=== PATIENT | female | born 2000 | race Caucasian/White ===

== ENCOUNTER 2024-11-29 21:55 | Emergency (ER) | payer OTHER, SELFPAY ==
[2024-11-29 22:02] VITALS: BP 126/85; PULSE 107; RESP 20; TEMP 36.7; O2SAT 100; BMI 22.1
--- NOTE | 2024-11-29 22:50 | CRLHL7_ITS ---
For Patients: As a result of the Century Cures Act, medical imaging exams and procedure reports are released immediately into your electronic medical record. You may view this report before your referring provider. If you have questions, please contact your health care provider. INDICATION: Blow to head, injury-TODAY TECHNIQUE: CT Head without i.v. contrast. Coronal and sagittal reformats were obtained. COMPARISON: None FINDINGS: CSF space: The ventricles are normal for age. Brain: No evidence of mass, acute infarction or hemorrhage is seen. No mass-effect or midline shift is seen. The brain parenchyma is otherwise normal in appearance with preservation of the ball-white matter junction. Calvarium: The visualized paranasal sinuses are well aerated. The mastoid air cells are clear. The visualized orbits are grossly unremarkable. The calvarium is unremarkable in appearance with no fractures identified. IMPRESSION: 1. No evidence of acute infarction, intracranial hemorrhage, or mass-effect seen. Please note that all CT scans at this facility use dose modulation, iterative reconstruction, and/or weight-based dosing when appropriate to reduce radiation dose to as low as reasonably achievable. Dictated by: Rj Sosa MD @ 11/29/2024 23:37:49 (Electronically Signed)
--- NOTE | 2024-11-29 22:50 | ED_ITS ---
HPI - General Adult General Chief complaint: Head Injury/Pain Stated complaint: Hit head on metal beam, [employer] Time Seen by Provider: 11/29/24 22:29 History of Present Illness HPI narrative: Patient is a 24-year-old woman who was at work at [employer] when 6 heavy doors fell on her. The door struck her on the right adventism knocked to the ground. She has a abrasion on the right lateral eyelid. She does not appear to have lost consciousness. Her GCS is 15. She was little confused initially but her sensorium has returned to normal. She does have a headache pain in the right side of her jaw. She can open and close her jaw without any difficulty. The injury occurred approximately 45 minutes ago and she was brought in by her mom. Patient's tetanus shot is up-to-date. She has no other symptoms such as neck pain. Related Data Allergies Allergy/AdvReac Type Severity Reaction Status Date / Time No Known Allergies Allergy Unknown Verified 11/29/24 22:10 Review of Systems Status of ROS: Reports: 10 or more systems reviewed and unremarkable except as noted in History and below Exam Narrative: Exam Narrative: EXAM GENERAL: Patient appears comfortable and well. EYES: No scleral icterus. Minor abrasion lateral upper eyelid linear non full- thickness. ENT: Tympanic membranes and oropharynx normal. THYROID: no thyroid nodules or thyromegaly. LYMPH: No supraclavicular or cervical lymphadenopathy. SKIN: Visible skin seen during exam normal or with benign process only. EXT: No dependent lower extremity pedal edema. HEART: Regular rate and rhythm with no murmurs, rubs, or gallops. LUNGS: Clear to auscultation bilaterally with no crackles or wheezes. ABD: Soft, non tender, non distended. PSYCH: Good eye contact, speech is not pressured. Neurologic cranial nerves 2-12 grossly intact no focal defects. Const: Vital Signs, click to edit/add: Vital Signs - 24 hr 11/29/24 22:02 Temperature 98.1 F Pulse Rate [Left P ulse Oximeter] 107 H Respiratory Rate 20 Blood Pressure [Le ft Upper Arm] 126/85 Pulse Oximetry 100 Oxygen Delivery Me thod Room Air Course Course ED Course: Patient seen and examined. Not believe the skin findings needle laceration repair and we did clean the wound. CT of the head pending. Vital Signs Vital signs: Initial Vital Signs Temperature 98.1 F 11/29/24 22:02 Temperature Source Temporal Artery Scan 11/29/24 22:02 Pulse Rate 107 H 11/29/24 22:02 Pulse Rhythm Regular 11/29/24 22:02 Respiratory Rate 20 11/29/24 22:02 Blood Pressure 126/85 11/29/24 22:02 Blood Pressure Mean 98 11/29/24 22:02 Blood Pressure Position Sitting 11/29/24 22:02 Pulse Oximetry 100 11/29/24 22:02 Oxygen Delivery Method Room Air 11/29/24 22:02 Vital Signs Temperature 98.1 F 11/29/24 22:02 Pulse Rate 107 H 11/29/24 22:02 Respiratory Rate 20 11/29/24 22:02 Blood Pressure 126/85 11/29/24 22:02 Pulse Oximetry 100 11/29/24 22:02 Oxygen Delivery Method Room Air 11/29/24 22:02 Temperature 98.1 F 11/29/24 22:02 Pulse Rate 107 H 11/29/24 22:02 Respiratory Rate 20 11/29/24 22:02 Blood Pressure 126/85 11/29/24 22:02 Pulse Oximetry 100 11/29/24 22:02 Oxygen Delivery Method Room Air 11/29/24 22:02 Medical Decision Making MDM Narrative Medical decision making narrative: Patient presents after receiving a blow to the head. Abrasion/ laceration was cleaned and dressed. No further intervention needed. CT of the head without contrast showed no evidence of id intracranial abnormalities. Patient's GCS is 15 and she is otherwise uninjured. Would recommend continued wound care Tylenol Motrin ice follow-up as needed. Discharge Plan Discharge Clinical Impression: Laceration Patient Disposition: Home, Self-Care Condition: Stable Instructions: Laceration (ED) Additional Instructions: bacitracin bandage as directed Tylenol Motrin ice follow-up as needed Activity Level: No Restrictions Discharge Diet: Regular Follow Up/Referrals: Provider,Not a Local [Primary Care Provider, Family Practice] Stand Alone Forms: [facility] Info Instructions
--- OUTSIDE RECORDS SUMMARY | 2024-11-29 23:10 | XMS_ITS | Encounter Summary ---
Author Organization [facility] Address [address] [place] [address]. [place] [address] Care Team Providers Care Universal Grinder Set Up Operator Name Role Phone Linda Jacques PA-C Primary Care Provider + [phone] Linda Jacques PA-C Unavailable [phone] [facility] Primary Care Provider Encounter Details Date Type Department Care Team (Late st Contact Info) Description 02/09/2021 MyC Medical Advice [facility] [address] [place] [address] Linda Jacques PA-C [address] [facility] [place], [place] [address] Social History Tobacco Use Types Packs/Day Years Used Date Smoking Tobacco: Never Smokeless Tobacco: Never Alcohol Use Standard Drinks/Week Comments Never 0 (1 standard drink = 0.6 oz pur e alcohol) AUDIT-C Answer Date Recorded Q1: How often do you have a drink containing alc ohol? 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
--- OUTSIDE RECORDS SUMMARY | 2024-11-29 23:10 | XMS_ITS | Clinical Summary ---
Author Organization [facility] Address [address] [place] [address] Care Team Providers Care Air Liaison And Special Staff Name Role Phone Armida Chan MD Primary Care Provider + [phone] Source Comments You are receiving this document as you are listed as the primary care provider,follow-up provider, or the patient has been referred to you for consultation.This is in compliance with the Medicare andThe [facility] EHR Incentive Program,which states Providers who transition their patient to another setting of careor provider of care or refers their patient to another provider of care shouldprovide summary care record for each transition of care or referral. [facility] Allergies No known active allergies Medications cetirizine (ZYRTEC) 10 MG tabletIndications: Perennial Allergic Rhinitis Take 1 Tablet (10 mg) by mouth daily. Indications: Perennial Allergic Rhinitis Active chlorhexidine gluconate (PERIDEX) 0.12 % solution Swish and spit 15 mL in mouth two times a day. 473 mL 4 Active valACYclovir (VALTREX) 1 g tabletIndications: Recurrent cold sores Take 2 Tablets (2,000 mg) by mouth two times a day. For 1 day at first sign of cold sore 12 Tablet 4 Active Norethin Sg-Eth Estrad-FE (BLISOVI FE 07/16) 1-20 MG-MCG tabletIndications: Encounter for contraceptive management, unspecified type Take 1 Tablet by mouth daily. 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 Chronic migraine without aur a without status migrainosus, not intractable 01/13/2014 Chronic rhinitis 09/21/2012 Encounters Date Type Department Care Team Description 10/19/2024 Notes/Orders [facility] [place] [address] [place] [address] Kaylah Roland, PT from Last 3 Months Immunizations Immunization Administration Dates Next Due 4vHPV (Gardasil) 11/22/2014 9vHPV (Gardasil 9) 07/18/2015,01/10/2015 Bexsero (Meningococcal Group B Vaccine) 05/01/2020 DTP 2002,2002 DTaP 08/15/2007, 4,2002,2002,2002 Flu Vac (3+ yrs) 04/06/2013, 1,05/29/2010,2008 HPV, Unspecified Formulation 11/22/2014 HepA Ped/Adol (1-18 yrs) 03/03/2012,01/01/2011 Hib/HBV 06/14/2003,2002,2002 IPV (Polio) 08/15/2007, 3,2002,2002 Influenza ([place] Only) (Flul aval Quad 0.5, 3+ yrs) 04/06/2013,07/03/2010,05/29/2010,2008 MCV4 (Menactra) 07/19/2019 MCV4 Menveo 2m.+ (two vial) 11/22/2014 MMR 06/14/2003 MMRV (ProQuad) 06/28/2006 Pneumococcal 7, PED 06/14/2003, 3,2002,2002 Td (7+ yrs) 11/22/2014 Tdap 11/22/2014 Varicella 06/14/2003 Family History Medical History Relation Name Comments Alcohol Abuse Father Miscarriages / Stillbirths Mother Arthritis Maternal Grandfather Diabetes Maternal Grandfather Heart Disease Maternal Grandfather Hypertension Maternal Grandfather Vision Loss Maternal Grandfather Amblyopia/Strabismus Maternal Grandmother Asthma Maternal Grandmother Crohn's Disease Maternal Grandmother Stroke Other MGGM Cancer Paternal Grandmother ovarian Glaucoma Negative Family History Macular Degeneration Negative Family History Retinal Detachment Negative Family History Relation Name Status Comments Father Alive Mother Alive Maternal Grandfather Maternal Grandmother Other MGGM Paternal Grandmother Social History Tobacco Use Types Packs/Day Years Used Date Smoking Tobacco: Never Smokeless Tobacco: Never Tobacco Cessation:Counseling Given: Not Answered Alcohol Use Standard Drinks/Week Comments Never 0 (1 standard drink = 0.6 oz pur e alcohol) PHQ-2 Answer Date Recorded PHQ-2 Score 4 07/20/2023 Financial Resource Strain Answer Date R ecorded Is it hard for you to pay fo r the very basics like food, housing, medical care or heating? No 01/18/2024 Food Insecurity Answer Date Recorded Does your food run out before you have the money to buy more? No 01/18/2024 Transportation Needs Answer Date Record ed Does a lack of transportatio n keep you from your medical appointments or from getting your medications? No 024 Comments No Sex and Gender Information Value Date Recorded Sex Assigned at Not on file Legal Sex Female 5:24 AM CDT Gender Identity Not on file Sexual Orientation Not on file Occupation Industry Job Start Date Job End Date student Not on file Not on file Not on file Last Filed Vital Signs Vital Sign Reading Time Taken Comments Blood Pressure 125/81 07/23/2024 7:43 AM SKILLED TRADES TEACHER Pulse 69 07/23/2024 7:43 AM SKILLED TRADES TEACHER Temperature 36.7 C (98.1 F) 09/24/2023 11:53 AM CDT Respiratory Rate 14 09/24/2023 11:53 AM CDT Oxygen Saturation 100% 09/24/2023 11:53 AM CDT Inhaled Oxygen Concentration - - Weight 59 kg (130 lb) 07/23/2024 7:43 AM SKILLED TRADES TEACHER Height 161.3 cm (5' 3.5) 01/18/2024 2:14 PM CDT Body Mass Index 22.66 01/18/2024 2:14 PM CDT Plan of Treatment Health Maintenance Due Date Last Done Comments Meningococcal B Vaccine (2 o f 2 - Bexsero SCDM 2-dose series) 10/29/2020 05/01/2020 Pneumococcal Vaccine (1 of 2 - PCV) 2021 06/14/2003, 2002, 2002, Additional history exists COVID-19 Vaccine (1 - 2023-2 5 season) 2024 DTaP/Tdap/Td Vaccine (8 - Tdap) 11/22/2024 11/22/2014, 11/22/2014, 08/15/2007, Additional history exists Adult Preventive Visit 01/17/2025 01/18/2024, 2020 Chlamydia 01/17/2025 01/18/2024, 07/28, 04/24/2021 Influenza Vaccine (Season Ended) 2025 04/06/2013, 04/06/2013, 07/03/2010, Additional history exists Cervical Cancer Screening 01/17/2027 01/18/2024 Zoster/Shingles Vaccine (1 of 2) 2052 HepB Vaccine Completed 06/14/2003, 09/26, 2002 Hib Vaccine Completed 06/14/2003, 09/26, 2002 Varicella Vaccine Completed 06/28/2006, 06/14/2003 IPV (Polio) Vaccine Completed 08/15/2007, 2002, 2002, Additional history exists HepA Vaccine Completed 03/03/2012, 01/01/2011 HPV Vaccine Completed 07/18/2015, 12/25, 11/22/2014, Additional history exists MCV4 Vaccine Completed 07/19/2019, 11/22/2014 HIV Screening (Preventive Services) Completed 01/18/2024 Hep C Screening (Preventive Services) Completed 01/18/2024 Procedures Procedure Name Priority Date/Time Associated Diagnosis Comments HIV 1/2 AG/AB 4TH GEN Routine 01/18/2024 3:39 PM CDT Screening for HIV (human immunodeficiency virus) HEPATITIS C ANTIBODY, WITH REFLEX (ANTI-HCV) Routine 01/18/2024 3:39 PM CDT Need for hepatitis C screening test CHLAMYDIA & GC (14 YEARS & OLDER) Routine 01/18/2024 3:09 PM CDT Routine screening for STI (sexually transmitted infection) CYTOLOGY (PAP) Routine 01/18/2024 3:09 PM CDT Screening for malignant neoplasm of cervix from Last 3 Months or Most Recently Relevant to Health Maintenance Results * HIV 1/2 Ag/Ab 4th Generation (01/18/2024 3:39 PM CDT) Pathologist [facility] HIV 1/2 Antigen/Antib julian (4th generation) Negative (Non Reactive) Negative (Non Reactive) 01/18/2024 8:53 PM CDT [facility] Comment:HIV-1 p24 Antigen an d HIV-1/HIV-2 Antibody not detected Blood Venipuncture / Unknown 01/18/2024 3:39 PM CDT 01/18/2024 3:39 PM CDT Armida Chan MD LAB_1 Final Result Performing Organization Address [facility] Phone Number [facility] [address] [place] [address] * Hepatitis C Antibody, with Reflex (01/18/2024 3:39 PM CDT) Pathologist [facility] Hepatitis C Antibody Negative (Non Reactive) Negative (Non Reactive) 01/18/2024 8:53 PM CDT [facility] Comment:Antibodies to HCV no t detected. Does not exclude the possiblity of exposure to HCV. Blood Venipuncture / Unknown 01/18/2024 3:39 PM CDT 01/18/2024 3:39 PM CDT Armida Chan MD LAB_1 Final Result Performing Organization Address [facility] de Phone Number [facility] [address] [place] [address] * PAP Test (01/18/2024 3:09 PM CDT) Pathologist [facility] Case Report Pap Case: [id number] Authorizing Provider: Armida Chan MD Collected: 01/18/2024 1509 Ordering Location: [facility] Received: 01/18/2024 1856 First Screen: Monica Tabares Specimen: Pap Test, Routine, Cervix/Endocervix 02/28/2024 2:04 PM CDT [facility] Pap Specimen Adequacy Satisfactory for evaluation, endocervical/mccollum sformation zone component absent. 02/28/2024 2:04 PM CDT [facility] Pap Interpretation (NILM) Negative for intraepithelial lesion or malignancy. 02/28/2024 2:04 PM CDT [facility] at 1404 CDT Pap Disclaimer The Pap test is a screening test to aid in the detection of cervical and vaginal cancers and their precursor lesions. It is not a diagnostic procedure and should not be used as the sole means of detecting malignancy. Both false-positive and false-negative results may occur. 02/28/2024 2:04 PM CDT [facility] Gross Description The specimen is received in SurePath fixative and properly labeled. 1 Pap-stained SurePath slide is prepared. 02/28/2024 2:04 PM CDT [facility] Embedded Images 2:04 PM CDT [facility] Other Specimen Type ENTIRE ENDOCERVIX / Unknown 01/18/2024 3:09 PM CDT 01/18/2024 6:56 PM CDT Comment:LMP: No LMP recorded . us Armida Chan MD LAB PATHOLOGY Final Result Performing Organization Address City/State/[facility] Co de Phone Number [facility] [address] * Chlamydia & GC (14 Years and Older): Vagina (01/18/2024 3:09 PM CDT) Chlamydia Trachomatis STD Not Detected Not Detected 01/19/2024 12:58 PM CDT [facility] N. gonorrhoeae STD Not Detected Not Detected 01/19/2024 12:58 PM CDT [facility] Swab STD SPECIMEN FROM VAGINA / Unknown Non-blood Collection / Unknown 01/18/2024 3:09 PM CDT 01/18/2024 6:55 PM CDT Narrative [facility] - 01/19/2024 12:58 PM CDT Test performed by Movie Shot Camera Operator Mediated Amplification (TMA). us Armida Chan MD LAB_1 Final Result [facility] [address] [place] [address], [facility] from Last 3 Months or Most Recently Relevant to Health Maintenance Insurance S[employer] S[employer]ED [employer]N CHARLES Care Teams Air Liaison And Special Staff Relationship Specialty [place] [address] [place] [address] Thras[address] [id number] PCP - General Family Practice 08/11/21
--- OUTSIDE RECORDS SUMMARY | 2024-11-29 23:10 | XMS_ITS | Clinical Summary ---
Author Organization [facility] Address [address] [place] [id number] Care Team Providers Care Equipment Scheduler Name Role Phone Clinic - [facility] Primary Care Provider Allergies No known active allergies Medications triamcinolone (KENALOG) 0.1 % external ointmentIndicati ons:Eczema, unspecified type Apply topically 2 times daily as needed for irritation 30 g 1 0 Active norethindrone-et hinyl estradiol (07/16) 1-20 MG-MCG tabletIndication s:Dysmenorrhea,A cne vulgaris Take 1 tablet by mouth daily 84 tablet 3 1 Active Immunizations Immunization Administration Dates Next Due Comvax (HIB/HepB) 06/14/2003,2002,08/23/19 03 DTAP (<7y) 08/15/2007, 4,2002,10/18,2002 HPV Quadrivalent 11/22/2014 HPV9 (Gardasil) 07/18/2015,01/10/2015 Hepatitis A (Vaqta/Havrix)(P eds 12m-18y) 03/03/2012,01/01/2011 Hpv, Unspecified 11/22/2014 Influenza Vaccine, 6+MO IM (QUADRIVALENT W/PRESERVATIVES) 04/06/2013,07/03/2010,05/29/2010,04/04 MMR (MMRII) 06/14/2003 MMR/V (Proquad) 06/28/2006 Meningococcal ACWY (Menactra ) 07/19/2019 Meningococcal ACWY (Menveo ) 11/22/2014 Meningococcal B (Bexsero ) 05/01/2020 Pneumococcal (PCV 7) 06/14/2003,12/15/19 03,2002,08/23 Poliovirus, inactivated (IPV) 08/15/2007 ,2002,2002,08/23 Tdap (Adult) Unspecified Formulation 11/22/2014 Varicella (Varivax) 06/14/2003 Family History Medical History Relation Comments Crohn's Disease Maternal Grandmother Relation Status Comments Maternal Grandmother Social History Tobacco Use Types Packs/Day [...] Answer Date Recorded PHQ-2 Score 0 07/31/2020 Adolescent Education Answer Date Record ed Getting School Help Needed Not on file 04/12 Comments No Sex and Gender Information Value Date Recorded Sex Assigned at Not on file 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 Gender Identity Not on file Sexual Orientation Not on file Last Filed Vital Signs Vital Sign Reading Time Taken Comments Blood Pressure 120/73 03/09/2021 2:12 PM CDT Pulse 102 03/09/2021 2:12 PM CDT Temperature 37 C (98.6 F) 03/09/2021 12:16 PM CDT Respiratory Rate 18 03/09/2021 2:12 PM CDT Oxygen Saturation 100% 03/09/2021 2:12 PM CDT Inhaled Oxygen Concentration - - Weight 58.1 kg (128 lb) 05/01/2020 5:15 PM DEBURRING AND TOOLING MACHINE OPERATOR Height 162.6 cm (5' 4) 05/01/2020 5:15 PM DEBURRING AND TOOLING MACHINE OPERATOR Body Mass Index 21.97 05/01/2020 5:15 PM DEBURRING AND TOOLING MACHINE OPERATOR Plan of Treatment Not on file Insurance [facility] Care Teams Equipment Scheduler Relationship Specialty Start Date End Date Clinic - [facility] [id number] [place] [id number] PCP - General 03/13/24
--- OUTSIDE RECORDS SUMMARY | 2024-11-29 23:10 | XMS_ITS | Encounter Summary ---
Author Organization [employer] Address [address], [place] [address] Care Team Providers Care Coat Operator Name Role Phone Armida Chan MD Primary Care Provider + [phone] Encounter Details Date Type Department Care Team (Late st Contact Info) Description 10/19/2024 Notes/Orders [facility] [place] [id number] [place] [phone] [place] [address] [place], [place] [phone] Social History Tobacco Use Types Packs/Day Years [...] file Not on file Not on file documented as of this encounter Progress Notes * Kaylah Roland, PT - 10/19/2024 1:04 PM CDT [facility] DISCHARGE NOTE Sally Mansfield has not attended physical therapy since last documented visit. There are no further visits scheduled at this time and Sally Mansfield is currently considered discharged from physical therapy. Unable to assess current level of function and goals due to unexpected discharge because of failure to schedule/attend recommended appointments. Please see previous visit documentation of status at last treatment. PT - Discharge Total Visits: 3 Reason for discharge: Patient has not been consistent with attendance and/or failed to schedule appointments as planned. documented in this encounter Plan of Treatment Not on file documented as of this encounter Visit Diagnoses Not on filedocumented in this encounter Care Teams Coat Operator Relationship Specialty [place] [address] [place] [address] [address] PCP - General Family Practice 08/11/21 documented as of this encounter
[2024-11-29 23:53] VITALS: BP 118/77; PULSE 89; RESP 20; TEMP 36.7; O2SAT 100
== END 2024-11-29 23:54 | disposition home or self-care (01) ==
PROVIDERS: Emergency Provider Internal Medicine
DX: S01.111A Laceration without foreign body of right eyelid and periocular area, initial encounter (principal); R68.84 Jaw pain; R51.9 Headache, unspecified; W20.8XXA Other cause of strike by thrown, projected or falling object, initial encounter; Y99.0 Civilian activity done for income or pay
CPT/HCPCS: 70450; 99283; 99284